=== PATIENT | male | born 1990 | race Caucasian/White ===

== ENCOUNTER 2023-03-04 08:46 | Outpatient (CLI) | payer OTHER, SELFPAY | END 2023-03-04 08:47 | disposition home or self-care (01) | LOC: NFLDREF 03-07 18:42 | PROVIDERS: PCP Family Medicine; Referring Provider Family Medicine; Visit Provider Family Medicine | DX: Z13.1 Encounter for screening for diabetes mellitus (principal); Z13.220 Encounter for screening for lipoid disorders | CPT/HCPCS: 80061; 82947 ==

== ENCOUNTER 2024-02-12 14:11 | Outpatient (CLI) | payer OTHER, SELFPAY | END 2024-02-12 14:12 | disposition home or self-care (01) | LOC: NFLDREF 02-15 14:34 | PROVIDERS: PCP Family Medicine; Referring Provider Family Medicine; Visit Provider Family Medicine | DX: Z13.1 Encounter for screening for diabetes mellitus (principal); Z13.220 Encounter for screening for lipoid disorders | CPT/HCPCS: 80061; 82947 ==

== ENCOUNTER 2024-03-08 11:22 | Outpatient (CLI) | payer OTHER, SELFPAY ==
--- NOTE | 2024-03-08 11:30 | CRLHL7_ITS ---
For Patients: As a result of the Century Cures Act, medical imaging exams and procedure reports are released immediately into your electronic medical record. You may view this report before your referring provider. If you have questions, please contact your health care provider. INDICATION: BB-sized lump lateral left scrotum TECHNIQUE: Conventional two-dimensional shah-scale ultrasound of the scrotum as well color-flow and pulsed Doppler of the testes. COMPARISON: None. FINDINGS: At the site of the lump is a solid-appearing 5 x 4 x 2 mm tunica albuginea nodule. This has a benign appearance. Both testes are normal in size, shape and echogenicity. The right testis measures 3.5 x 2.4 x 3.9 cm and the left 3.2 x 2.1 x 3.0 cm. Color flow Doppler demonstrates normal testicular and epididymal blood flow. No epididymal abnormality is evident. No hydrocele is noted. No varicocele is demonstrated. IMPRESSION: 1. Solid, benign-appearing 5 x 4 x 2 mm tunica albuginea nodule on the left at the site of the palpable lump. 2. Normal testes. Dictated by Shaw Guillermo MD @ 03/09/2024 8:19:39 AM (Electronically Signed)
== END 2024-03-08 11:23 | disposition home or self-care (01) ==
PROVIDERS: PCP Family Medicine; Visit Provider Family Medicine
DX: N50.89 Other specified disorders of the male genital organs (principal)
CPT/HCPCS: 76870; 93976

== ENCOUNTER 2025-02-22 08:23 | Outpatient (CLI) | payer OTHER, SELFPAY | END 2025-02-22 08:24 | disposition home or self-care (01) | LOC: NFLDREF 02-25 04:35 | PROVIDERS: PCP Family Medicine; Referring Provider Family Medicine; Visit Provider Family Medicine | DX: E78.5 Hyperlipidemia, unspecified (principal) | CPT/HCPCS: 80061 ==